=== PATIENT | female | born 1950 | race Asian ===

== ENCOUNTER 2016-12-30 12:00 | Emergency (ER) | payer MEDICARE ==
[~2016-12-30] VITALS: Ht 160 cm; Wt 53.0 kg
[~2016-12-30 12:00] MED LIST: ASCO-294 PO; DICL100G8 TOPICAL; ERGO400T3 PO; HYDR-656 PO; LEVO75TA4 PO; LIDOCAINE TOP; NAPR220C11 PO; OMEP20CA11 PO; OXYC1TAB24 PO; PRAV10TA2 PO
[2016-12-30 12:07] VITALS: BP 167/67; PULSE 65; RESP 16; O2SAT 97
--- NOTE | 2016-12-30 12:23 | ED.REPORT ---
HPI-Abd Pain F 2 and Over Date of Service Dec 30, 2016 ED Provider: Teodoro Costa MD The pt is a 66 y/o female presenting to the ED complaining of abdominal pain. She describes waking up at 0500 feeling like her heart was going "to explode" as well as experiencing diaphoresis, headache, nausea, slight fever of 99.8 and vomiting. She took a teaspoon of baking soda which helped calm her stomach. She returned to sleep but then woke up at 1000 having a bitter taste in her mouth and abdominal pain that radiated to her L side. She describes eating chicken which may have been partially uncooked as well as a "smelly" avocado which may have caused her symptoms. The pt once had an allergic reaction from eating an avocado which caused her lips to swell as well as causing diarrhea and stomach "churning". Nursing Notes Stated Complaint: ABDOMINAL PAIN Chief Complaint: Male Abdominal Pain Nursing Notes Reviewed: Yes ([employer], Telepos not reconciled) Allergies: Coded Allergies: No Known Allergies (Unverified , 02/06/16) Scheduled Ascorbate Calcium (Vitamin C) 500 Mg Tablet 0 PO DAILY Diclofenac Gel (Voltaren Gel) 100 Gm Tube 1 APPLIC TOPICAL DAILY Ergocalciferol (Vitamin D2) (Vitamin D) 400 Unit Tablet 0 PO DAILY Levothyroxine (Levothyroxine) 75 Mcg Tablet 75 MCG PO DAILY Omeprazole (Omeprazole) 20 Mg Capsule.dr 20 MG PO BID Pravastatin (Pravastatin) 10 Mg Tablet 10 MG PO HS Scheduled PRN ([lidocaine gel]) 1 APPLIC TOP 0000 PRN PRN For Pain Naproxen Sodium (Aleve) 220 Mg Capsule 220 MG PO q6hr PRN PRN For Pain Ondansetron ODT (Ondansetron ODT) 8 Mg Tab.rapdis 8 MG PO Q4H PRN PRN For Nausea hydrOXYzine Hcl (HydrOXYzine Hcl) 25 Mg Tablet 25 MG PO prn PRN PRN anxiety oxyCODONE-Acetaminophen 5-325 mg (oxyCODONE-Acetaminophen 5-325 mg) 1 Each Tablet 1 TAB PO Q4H PRN PRN For Pain General Time Seen by MD: 12:22 Chief Complaint Abdominal pain Hx Obtained from: Patient Arrived by: Walk-in Sudden in Onset?: Yes Onset Occurred: 1 - 4 hours ago Recent Healthcare: No recent doctor visit, No recent hospitalization Similar Sx Previous: Yes Past Medical History Past Medical History None reported Past Surgical History None reported Smoking History Never Smoker Ambulatory Status Ambulatory Status: Independent Review of Systems Bitter taste in mouth Constitutional: Reports: Fever (99.8 degrees ) GI: Reports: Abdominal pain (L side ), Nausea, Vomiting Complete sys rev & neg: except as marked. Skin: Reports Diaphoresis Neurologic: Reports: Headache Physical Exam Initial Vital Signs Vital Signs (First) Date Time Temp Pulse Resp B/P Pulse Ox O2 Delivery O2 Flow Rate FiO2 12/30/16 12:07 36.9 65 16 167/67 97 Room Air Initial VS: Reviewed, Vital signs normal General / Constitutional: Awake, Alert, Not toxic appearing Behavior: Positive: Anxious Respiratory / Chest: Atraumatic, Breath sounds NL, Breath sounds = bilat, No respiratory distress Cardiovascular: Heart rate NL, Regular rhythm, Heart sounds NL Abdomen: Atraumatic, Soft, Non-tender Back: Atraumatic, Inspection NL, Full range of motion Head / Eyes: Atraumatic, Normocephalic ENT: Atraumatic, Airway patent Skin: Atraumatic, Color NL, No rash, Warm, Dry Neurologic: Orientation NL for age, Speech NL for age Neck: Atraumatic, Supple, Full range of motion Psychiatric: Not suicidal, Not homicidal Component of paranoia, pt believes her neighbor is sneaking into her house to scare her Pt does not appear delusional or intoxicated Interpretation & Diagnostics Lab Results Interpretation Result Diagram: 12/30/16 1337 12/30/16 1337 Test 12/30/16 13:37 White Blood Count 5.2th/mm3 (3.8-10.1) Red Blood Count 4.44mil/mm3 (3.90-5.20) Hemoglobin 13.5g/dL (12.0-15.6) Hematocrit 39.1% (35.0-46.0) Mean Corpuscular Volume 88.1fL (81-100) Mean Corpuscular Hemoglobin 30.4pg (27.0-35.0) Mean Corpuscular Hemoglobin Concent 34.5% (32.0-37.0) Red Cell Distribution Width 13.0% (12.3-15.4) Platelet Count 286bil/L (150-400) Neutrophils (%) (Auto) 52.6% (40-74) Lymphocytes (%) (Auto) 33.1% (14-46) Monocytes (%) (Auto) 8.7% (4-12) Eosinophils (%) (Auto) 4.8% (0-5) Basophils (%) (Auto) 0.6% (0-3) Sodium Level 141mEq/L (134-144) Potassium Level 4.0mEq/L (3.5-5.2) Chloride Level 103mEq/L (97-108) Carbon Dioxide Level 24mmol/L (18-29) Blood Urea Nitrogen 24mg/dL (8-27) Creatinine 0.52mg/dL (0.57-1.00) Estimat Glomerular Filtration Rate 168mL/min (>59) Glucose Level 91mg/dL (60-99) Calcium Level 9.6mg/dL (8.5-10.1) Magnesium Level 2.2mg/dL (1.6-2.6) Total Bilirubin 0.6mg/dL (0.0-1.2) Aspartate Amino Transf (AST/SGOT) 22U/L (0-50) Alanine Aminotransferase (ALT/SGPT) 15U/L (0-32) Alkaline Phosphatase 56U/L (25-165) Troponin T < 0.010ug/L (0.0-0.011) Total Protein 7.5g/dL (6.4-8.4) Albumin 4.4g/dL (3.4-5.0) Lipase 42U/L (13-60) Lab Results Interpretation: CBC normal CMP normal Lipase normal troponin negative X-Ray Chest Interpretation Chest Xray Interpretation: IMPRESSION: No acute cardiopulmonary pathology. Dictated by: Yanick Melgar M.D. on 12/30/2016 at 13:38 Approved by: Yanick Melgar M.D. on 12/30/2016 at 13:39 View: Portable, 1 view Interpretation / Wet Read by: Interpret - Radiologist Re-Eval/Medical Decision Med Decision/Clinical Course This is a 66-year-old female presents complaining of chest and abdominal discomfort with terrible nausea vomiting that woke her from sleep this morning. She she felt terrible, and recurrent bouts of vomiting, and was able to go back to sleep and when Tums helped slightly, but symptoms recurred and so she came to the emergency department. She is a wandering historian, and reverts in the middle of the interview to a long, and lengthy explanation of how she has describes what sounds like paranoia of her neighbor sneaking into her house and a numerous sedative security precautions that she has been subsequent set in place. Interestingly on her last ED visit there was a paranoid component over the was trying to poison her. No suicidality or homicidality. She otherwise appears well. She is mostly concerned about food poisoning. She did have some mild diarrhea. On exam she clinically appears well. She has normal vitals, she has no diaphoresis, her lungs are clear, heart tones normal, her abdomen is entirely soft and nontender on repeated exams. There is no clinical findings of an acute surgical abdomen. Was entirely normal. Blood work also entirely normal including lipase. The patient was observed, she is able to eat and drink and had no further symptoms here. All in all while she gave a history concerning illness, she appears quite well, has normal vitals, normal labs and a normal exam. I am not finding indication a CT imaging is indicated. The patient has had a extended multihour ED evaluation in her some remained well throughout. Given her benign appearance, normal workup and vitals are not funny indication for additional testing. Patient feels much better and wants to go home, I think this is reasonable. Poisoning or food toxin certainly is in the differential, and a gastroenteritis remains most likely as the etiology, I am not finding evidence of an acute coronary syndrome, surgical abdomen peptic ulcer disease or other severe pathology to necessitate testing at this time. However return precautions are reviewed. Source of Hx: Old records Re-Evaluation/Progress : Time of Eval: 15:46 Re-Evaluation/Progress Note: Pt rechecked. Informed pt of plan for treatment. Pt understands and agrees with plan for treatment. F/U instructions and RTER warnings given. All questions addressed. Differential Diagnosis: Positive: Acute abdominal pain, Negative: Abscess, Bowel obstruction, Cholelithiasis, Ectopic preg ruptured, Ectopic , Esophagitis, Gun shot wound abdomen, Henoch-Schonlein purpura , Intractable vomiting, Intrauterine , Peritonitis, Pneumonia, Sexually transmit disease, Trauma, abdominal, Urinary tract infection Counseled Regarding: Diagnosis, Lab results, Need for follow-up, When/why to return to ED Discharge & Departure Impression: Primary Impression: Vomiting and diarrhea Disposition: Home Discharge Condition All VS Reviewed: Yes Condition: Stable Additional Instructions: 1. Your blood tests in the emergency department were normal. 2. There is a strong possibility of a food borne illness causing the vomiting and diarrhea. 3. Drink small, frequent sips of fluid, and advance diet as tolerated. Symptoms are expected to continue to improve rapidly over the next few days 4. You can take ondansetron 8mg (let dissolve under the tongue) up to every 4 hours as needed for nausea. 5. Return if new or worsening symptoms Referrals: MARLENY MARTINI MD (PCP) Scribe Attestation Portions of this note were transcribed by Fortunato Jack. I, Dr. Valerio personally performed the history, physical exam and medical decision-making; I reviewed and confirmed the accuracy of the information in the transcribed note. Signed by : Imelda Olson, 12/30/16 and 3304. MARLENY MARTINI MD, Matthew F MD Dec 30, 2016 12:23 Fortunato Jack Dec 30, 2016 16:23
[2016-12-30] MEDS ORDERED: Ondansetron 2 mg/mL 2 mL Inj IVPUSH ONE (12:55)
--- NOTE | 2016-12-30 13:41 | DRSVH ---
PROCEDURE: X-RAY CHEST ONE VIEW, PORTABLE ([id number]) INDICATIONS: CHEST PAIN TECHNIQUE: One view of the chest was acquired. COMPARISON: [facility], CR, XR CHEST 1VW (PORTABLE), 02/05/2016, 18:02. FINDINGS: Surgical changes and devices: None. Lungs and pleura: No pleural effusions or pneumothorax. Lungs are clear. Hyperinflation. Mediastinum: Mediastinal contours appear normal. Heart size is normal. Bones and chest wall: No suspicious bony lesions. Overlying soft tissues appear unremarkable. IMPRESSION: No acute cardiopulmonary pathology. Dictated by: Yanick Melgar M.D. on 12/30/2016 at 13:38 Approved by: Yanick Melgar M.D. on 12/30/2016 at 13:39
[2016-12-30 13:48] LABS: BASOPHILS % (AUTO) 0.6 % (0-3); EOSINOPHILS % (AUTO) 4.8 % (0-5); MONOCYTES % (AUTO) 8.7 % (4-12); Mean Corpuscular Hemoglobin 30.4 pg (27.0-35.0); Mean Corpuscular Volume 88.1 fL (81-100); NEUTROPHILS % (AUTO) 52.6 % (40-74); Platelet Count 286 bil/L (150-400)
[2016-12-30 13:50] VITALS: BP 134/67; PULSE 56; RESP 15; O2SAT 57
[2016-12-30 14:13] LABS: Magnesium 2.2 mg/dL (1.6-2.6)
[2016-12-30 14:16] LABS: TROPONIN T < 0.010 ug/L (0.0-0.011)
[2016-12-30 15:29] VITALS: BP 143/66; PULSE 69; RESP 17; O2SAT 97
[2016-12-30] MEDS ORDERED: ONDA8TAB10 PO (16:12)
[2016-12-30 16:24] VITALS: BP 143/66; PULSE 69; RESP 17; O2SAT 97
== END 2016-12-30 16:26 | disposition home or self-care (01) ==
LOC: SED 12:00
DX: R11.2 Nausea with vomiting, unspecified (principal); R19.7 Diarrhea, unspecified; R50.9 Fever, unspecified
CPT/HCPCS: 36415; 71010; 80053; 83690; 83735; 84484; 85025; 93005; 96374; 99285; J2405